=== PATIENT | female | born 1970 | race African-American/Black ===

== ENCOUNTER 2019-03-03 10:20 | Inpatient (IN) ==
[2019-03-03] MEDS ORDERED: ACETAMINOPHEN 325 MG TABLET PO PRN (13:16)
[2019-03-03] MEDS ORDERED: ALBUTEROL 2.5 MG/3 ML NEB RESP TX PRN (13:16)
[2019-03-03 14:27] LABS: Albumin 3.7 G/DL (3.4-5.0); Bilirubin,Total 0.7 MG/DL (0.2-1.0); Calcium 9.4 MG/DL (8.5-10.1); Osmolality,Calculated 290.4 MOS/KG (273-304); Total Protein 6.7 G/DL (6.4-8.3)
[2019-03-03 14:31] LABS: ABG Base Excess 1.2 MMOL/L (-2.5-2.5); ABG HCO3 25.5 MMOL/L (20-26); ABG Oxygen Saturation 99.1 % (95-100); ABG PH 7.424 (7.35-7.45); ABG TCO2 22.3 MMOL/L (23-27); Allen Test Positive; Pt O2 Delivery Device Venturi Mask
[2019-03-03 15:01] LABS: Basophils # 0.1 10*3/uL (0.0-0.2); Basophils % 0.4 % (0.0-0.8); Eosinophils # 0.2 10*3/uL (0.0-0.87); Eosinophils % 1.1 % (0.00-10.9); Hematocrit 39.4 VOL% (35.7-47.0); Hemoglobin 12.7 GM/DL (12.0-16.0); Immature Granulocytes % 0.7 %; Lymphocytes # 0.4 10*3/uL (1.4-4.0); Lymphocytes % 2.7 % (21.3-54.2); Mean Corpuscular HGB Conc 32.2 GM/DL (32-36); Mean Corpuscular Volume 89.5 FL (87-102); Mean Platelet Volume 9.5 FL (9.6-12.0); Monocytes % 0.9 % (1.7-12.7); Neutrophils % 94.2 % (38.7-73.9); Platelet Count 246 T/CUMM (130-400); Red Cell Distribution Width 13.2 % (9.3-17.3)
[2019-03-03 15:08] LABS: INR 0.9; PT Patient Result 9.9 SECS (9.6-12.2)
[2019-03-03] MEDS ORDERED: LEVALBUTEROL 1.25 MG/3 ML NEB RESP TX PRN (15:40)
[2019-03-03 15:58] LABS: Band Neutrophils 2 % (0-10); Eosinophils 2 % (0-10); Lymphocytes 4 % (20-55); Platelet Estimate Adequate; Segmented Neutrophils 91 % (50-85); Total Cells Counted 100
[2019-03-03] MEDS ORDERED: GLUCAGON 1 MG VIAL IM PRN (16:24)
[2019-03-03] MEDS ORDERED: DEXTROSE 10% 250 ML BAG IV PRN (16:24)
[2019-03-03] MEDS: ENOXAPARIN 40 MG/0.4 ML SYRINGE SUBCUT SCH (17:06)
[2019-03-03] MEDS: INSULIN LISPRO 100 UNIT/ML SUBCUT SCH ×2 (17:06→21:12)
[2019-03-03] MEDS: LEVALBUTEROL 1.25 MG/3 ML NEB RESP TX SCH ×2 (19:18→23:29)
[2019-03-04] MEDS: LEVALBUTEROL 1.25 MG/3 ML NEB RESP TX SCH ×6 (03:30→23:46)
[2019-03-04 06:19] LABS: Basophils % 0.3 % (0.0-0.8); Eosinophils % 0.1 % (0.00-10.9); Hematocrit 37.1 VOL% (35.7-47.0); Immature Granulocytes Absolute 0.14 #; Lymphocytes # 0.9 10*3/uL (1.4-4.0); Lymphocytes % 6.3 % (21.3-54.2); Mean Corpuscular HGB Conc 32.3 GM/DL (32-36); Mean Platelet Volume 9.8 FL (9.6-12.0); Monocytes % 5.7 % (1.7-12.7); Neutrophils % 86.6 % (38.7-73.9); Platelet Count 230 T/CUMM (130-400); Red Blood Count 4.17 MC/CUMM (3.8-5.5); Red Cell Distribution Width 13.1 % (9.3-17.3); White Blood Count 14.7 T/CUMM (4-12)
[2019-03-04 06:36] LABS: Albumin 3.1 G/DL (3.4-5.0); Bilirubin,Total 0.7 MG/DL (0.2-1.0); Calcium 9.1 MG/DL (8.5-10.1); Osmolality,Calculated 284.3 MOS/KG (273-304); Thyroid Stimulating Hormone 0.813 uIU/ml (0.358-3.74); Total Protein 6.4 G/DL (6.4-8.3)
[2019-03-04] MEDS: PANTOPRAZOLE 40 MG TABLET PO SCH (09:47)
[2019-03-04] MEDS: INSULIN LISPRO 100 UNIT/ML SUBCUT SCH ×4 (09:47→21:42)
[2019-03-04] MEDS: guaiFENesin/CODEINE 5 ML LIQUID PO PRN (12:41)
[2019-03-04] MEDS: ENOXAPARIN 40 MG/0.4 ML SYRINGE SUBCUT SCH (12:41)
[2019-03-04] MEDS ORDERED: FUROSEMIDE 40 MG TABLET PO PRN (15:49)
[2019-03-04] MEDS ORDERED: MAGNESIUM SULF RIDER 2 GM in PREMIX 1 EACH IV ONE (15:57)
[2019-03-04] MEDS ORDERED: THEOPHYLLINE ER 300 MG TABLET PO ONE (15:59)
[2019-03-04] MEDS: predniSONE 20 MG TABLET PO SCH (16:57)
[2019-03-04] MEDS: SIMVASTATIN 20 MG TABLET PO SCH (21:44)
[2019-03-04] MEDS: POTASSIUM CHLORIDE 10 MEQ TABLET PO SCH (21:44)
[2019-03-04] MEDS: MONTELUKAST 10 MG TABLET PO SCH (21:44)
[2019-03-04] MEDS: metFORMIN 500 MG TABLET PO SCH (21:44)
[2019-03-04] MEDS: BUDESONIDE/FORMOTEROL 160-4.5 INHALER 6 GM INH SCH (21:54)
[2019-03-05] MEDS: guaiFENesin/CODEINE 5 ML LIQUID PO PRN (01:04)
[2019-03-05] MEDS: LEVALBUTEROL 1.25 MG/3 ML NEB RESP TX SCH ×2 (04:02→07:39)
[2019-03-05] MEDS: THEOPHYLLINE ER 300 MG TABLET PO SCH (08:47)
[2019-03-05] MEDS: MONTELUKAST 10 MG TABLET PO SCH ×2 (08:47→21:22)
[2019-03-05] MEDS: predniSONE 20 MG TABLET PO SCH (08:47)
[2019-03-05] MEDS: PANTOPRAZOLE 40 MG TABLET PO SCH (08:47)
[2019-03-05] MEDS: metFORMIN 500 MG TABLET PO SCH ×2 (08:47→21:22)
[2019-03-05] MEDS: INSULIN LISPRO 100 UNIT/ML SUBCUT SCH ×4 (08:47→21:25)
[2019-03-05] MEDS: POTASSIUM CHLORIDE 10 MEQ TABLET PO SCH ×2 (08:47→21:21)
[2019-03-05] MEDS: BUDESONIDE/FORMOTEROL 160-4.5 INHALER 6 GM INH SCH ×2 (09:50→21:21)
[2019-03-05] MEDS: ENOXAPARIN 40 MG/0.4 ML SYRINGE SUBCUT SCH (14:07)
[2019-03-05] MEDS ORDERED: LEVALBUTEROL 0.63 MG/3 ML NEB RESP TX SCH (15:00)
[2019-03-05] MEDS ORDERED: ONDANSETRON 4 MG/2 ML VIAL IV PRN (16:32)
[2019-03-05] MEDS: LEVALBUTEROL 0.63 MG/3 ML NEB RESP TX SCH (19:09)
[2019-03-05] MEDS: SIMVASTATIN 20 MG TABLET PO SCH (21:22)
[2019-03-06] MEDS: LEVALBUTEROL 0.63 MG/3 ML NEB RESP TX SCH ×2 (00:21→07:27)
[2019-03-06] MEDS ORDERED: FUROSEMIDE 40 MG/4 ML VIAL IV ONE (06:59)
[2019-03-06] MEDS: INSULIN LISPRO 100 UNIT/ML SUBCUT SCH ×2 (07:59→12:16)
[2019-03-06] MEDS: POTASSIUM CHLORIDE 10 MEQ TABLET PO SCH (08:00)
[2019-03-06] MEDS: PANTOPRAZOLE 40 MG TABLET PO SCH (08:00)
[2019-03-06] MEDS: THEOPHYLLINE ER 300 MG TABLET PO SCH (08:01)
[2019-03-06] MEDS: metFORMIN 500 MG TABLET PO SCH (08:01)
[2019-03-06] MEDS: MONTELUKAST 10 MG TABLET PO SCH (08:01)
[2019-03-06] MEDS: BUDESONIDE/FORMOTEROL 160-4.5 INHALER 6 GM INH SCH (08:04)
[2019-03-06 08:09] LABS: Albumin 3.3 G/DL (3.4-5.0); Bilirubin,Total 0.4 MG/DL (0.2-1.0); Calcium 8.7 MG/DL (8.5-10.1); Osmolality,Calculated 285.4 MOS/KG (273-304); Total Protein 6.7 G/DL (6.4-8.3)
[2019-03-06] MEDS ORDERED: LISINOPRIL 5 MG TABLET PO SCH (09:00)
[2019-03-06] MEDS ORDERED: predniSONE 20 MG TABLET PO SCH (09:00)
[2019-03-06 15:07] VITALS: BP 150/83
== END 2019-03-06 12:09 | disposition home or self-care (01) | DRG 199 ==
LOC: SUATTDRO 11:31 → N.ICU 11:31 → N.5E 03-04 18:38
PROVIDERS: ADMIT Phlebology; ATTEND Hospitalist